=== PATIENT | female | born 1995 | race African-American/Black ===

== ENCOUNTER 2016-07-20 03:21 | Emergency (ER) | payer BC, OTHER ==
[2016-07-20 02:03] LABS: INFLUENZA A POS (NEG); INFLUENZA B NEG (NEG)
[~2016-07-20 03:21] MED LIST: ALBUTEROL17 GM; GLUCOPHAGE500 MG
== END 2016-07-20 03:45 | disposition home or self-care (01) ==
LOC: SED 03:21
PROVIDERS: Emergency Medicine
DX: J45.901 Unspecified asthma with (acute) exacerbation (principal); J10.1 Influenza due to other identified influenza virus with other respiratory manifestations; E11.9 Type 2 diabetes mellitus without complications; Z90.89 Acquired absence of other organs
CPT/HCPCS: 87651; 87804; 87880; 99282; 99283